=== PATIENT | male | born 1995 | race Hispanic/Latino ===

== ENCOUNTER 2018-03-22 13:07 | Emergency (ER) | payer OTHER, SELFPAY ==
[2018-03-22] MEDS ORDERED: Adacel (T-DAP) 0.5 ML VIAL ONE (13:57)
[2018-03-22] MEDS ORDERED: Lidocaine 1% 20 ML MDV ONE (14:43)
[2018-03-22] MEDS ORDERED: Bacitracin Zinc 1 Packet ONE (16:03)
== END 2018-03-22 16:11 | disposition home or self-care (01) ==
LOC: SCSER 13:07
DX: S61.412A Laceration without foreign body of left hand, initial encounter (principal); F17.210 Nicotine dependence, cigarettes, uncomplicated; W26.8XXA Contact with other sharp object(s), not elsewhere classified, initial encounter
CPT/HCPCS: 12002; 90471; 90715; J2001